=== PATIENT | male | born 1990 | race Caucasian/White ===

== ENCOUNTER 2024-08-02 14:35 | Emergency (ER) | payer OTHER, SELFPAY ==
--- NOTE | ~2024-08-02 | XR_ITS ---
EXAMINATION: XR chest 2V DATE: 08/02/2024 15:04 INDICATION: Cough and wheezing TECHNIQUE: PA and lateral views of the chest were obtained. COMPARISON: None FINDINGS: The lungs are clear with no focal airspace opacities, pulmonary edema, pleural effusion or pneumothor ax. The cardiomediastinal silhouette is normal. Mild kyphosis at the thoracolumbar junction and mild to moderate spondylosis. IMPRESSION: 1. No acute cardiopulmonary disease. Reviewed, dictated and finalized at location A. [facility] [employer] [employer]
--- NOTE | 2024-08-02 14:38 | ED.URI ---
HPI - URI/Sore Throat General Chief Complaint: Upper Respiratory Infection Stated Complaint: coughing and congestion Time Seen by Provider: 08/02/24 14:59 Source: patient, RN notes reviewed and old records reviewed Mode of arrival: ambulatory Limitations: no limitations History of Present Illness HPI Narrative: 34-year-old male presents to the [facility] with cough and congestion that started a month ago. States that he did a telehealth visit a couple weeks ago, was prescribed a Z-Hilario. States he eats he has never got better. Has been exposed to ?walking pneumonia. ? No other treatments prior to arrival States that he had fevers the 1st 2 days of symptoms, no recent fevers. Related Data Home Medications ?Medication ?Instructions ?Recorded ?Confirmed ?Last Taken ?Type No Home Medications 08/02/24 08/02/24 Unknown History Allergies Allergy/AdvReac Type Severity Reaction Status Date / Time latex Allergy Mild Rash Verified 08/02/24 14:52 Penicillins Allergy Mild Other Verified 08/02/24 14:52 Review of Systems Review of Systems: All systems reviewed & are unremarkable except as noted in HPI and below Constitutional: Constitutional: Reports no additional constitutional complaints ENT: Reports system reviewed and no additional complaints, except as documented Cardiovascular: Cardiovascular: Reports no additional cardiovascular complaints, Denies chest pain and Denies dyspnea Respiratory: Respiratory: Reports as per HPI, Reports chest congestion, Reports cough and Denies dyspnea Musculoskeletal: Musculoskeletal: Reports no additional musculoskeletal complaints Integumentary/Breasts: Skin/Breast: Reports system reviewed and no additional complaints, except as docu PMFSH Comments At the time of my signature, I reviewed and agree with the nursing past medical, surgical, social, and family history. There is no relevant family history pertinent to the patient complaint. Exam Const: General: cooperative, healthy appearing, comfortable, no acute distress, well developed, alert and well nourished Nutritional Appearance: well nourished Orientation/consciousness: patient oriented x3 Limitations: no limitations HENMT: Head: normal to inspection Eyes: General: appearance normal, both eyes and all related structures Alignment and Position: alignment normal Neck: Neck: normal visual inspection, full ROM, no lymphadenopathy and no meningeal signs Chest: Chest palpation & inspection: normal inspection of the chest Resp: Effort & Inspection: normal respiratory effort and able to speak in complete sentences Auscultation: no crackles, no rales, no rhonchi and wheezes left lower (To left middle) Cardio: Rate: regular rate Skin: General skin exam: normal color and no rashes or lesions noted Neuro: General: patient oriented x3, gait normal, moves all extremities and no meningeal signs Cognition (Neuro): normal cognition Speech: normal speech Gait exam (Neuro): Normal gait present Extrem: General: normal to inspection, full ROM, capillary refill normal and normal gait Psych: Appearance: grossly normal and well kempt Mental Status: mental status grossly normal Speech and movement: Normal speech and movement present and Clear speech present Affect: normal affect Attitude: cooperative Course Course Level of Care: Express Care Visit Vital Signs Vital signs: Vital Signs Temperature 96.4 F L 08/02/24 14:47 Pulse Rate 73 08/02/24 14:47 Respiratory Rate 18 08/02/24 14:47 Blood Pressure 140/76 08/02/24 14:47 Pulse Oximetry 97 08/02/24 14:47 Oxygen Delivery Room Air 08/02/24 14:47 Temperature 96.4 F L 08/02/24 14:47 Pulse Rate 73 08/02/24 14:47 Respiratory Rate 18 08/02/24 14:47 Blood Pressure 140/76 08/02/24 14:47 Pulse Oximetry 97 08/02/24 14:47 Oxygen Delivery Room Air 08/02/24 14:47 Reviewed MDM - URI/Sore Throat MDM Narrative Medical decision making narrative: Patient sitting comfortably in exam room. Nontoxic, vitals stable. Patient in no acute distress. Patient presents with 1 month history of cough, congestion. Has taken a Z-Hilario with no relief. Patient has mild expiratory wheezing in the left mid to lower lobes. X-ray ordered. Patient walked out of clinic with his family stating the kids are not behaving. Patient requested that if anything abnormal found on x-ray that we call him. Patient eloped X-ray had been reviewed, no acute findings noted on x-ray Some parts of this dictation were generated by voice recognition software and may contain typographical and/or grammatical inaccuracies. Differential Diagnosis Differential diagnosis: Likely upper respiratory infection, otitis media, sinusitis, viral infection, bronchitis and other (Pneumonia) Imaging Data Radiologist's impression: EXAMINATION: XR chest 2V DATE: 08/02/2024 15:04 INDICATION: Cough and wheezing TECHNIQUE: PA and lateral views of the chest were obtained. COMPARISON: None FINDINGS: The lungs are clear with no focal airspace opacities, pulmonary edema, pleural effusion or pneumothorax. The cardiomediastinal silhouette is normal. Mild kyphosis at the thoracolumbar junction and mild to moderate spondylosis. IMPRESSION: 1. No acute cardiopulmonary disease. Critical Care Time Critical Care Time Critical Care Time: No Discharge Plan Discharge Clinical Impression: Bronchitis Patient Disposition: Elopement After Seen by Prov Condition: Stable Patient Language: Peruvian Prescriptions: No Action No Home Medications Follow-up/Referrals: PHYSICIAN,[facility] [employer] RADAR OPERATOR [Primary Care Provider] - Time of Disposition: 18:21
[2024-08-02 14:47] VITALS: BP 140/76; PULSE 73; RESP 18; TEMP 35.8; O2SAT 97
--- NOTE | 2024-08-02 15:27 | PC.NURSE ---
1527- pt eloped before CXR results available. Pt and spouse stated, his children were not behaving any longer and to just call and let him know if he needs anything. [employer]ATOR notified
== END 2024-08-02 15:27 | disposition left against medical advice (07) ==
PROVIDERS: Emergency Provider Nurse Practitioner
DX: J40 Bronchitis, not specified as acute or chronic (principal)
CPT/HCPCS: 71046; 99203; G0463